=== PATIENT | male | born 1980 | race Caucasian/White ===

== ENCOUNTER → 2017-01-02 | Outpatient (CLI) | payer OTHER ==
[2017-01-02 15:18] LABS: BUN/CREATININE RATIO 15 (0-10)
== END ==
LOC: LAB 14:11
PROVIDERS: Nurse Practitioner Family
DX: M54.2 Cervicalgia (principal); M54.9 Dorsalgia, unspecified; R05 Cough; M25.572 Pain in left ankle and joints of left foot; M25.571 Pain in right ankle and joints of right foot; M25.561 Pain in right knee; M25.562 Pain in left knee; M47.816 Spondylosis without myelopathy or radiculopathy, lumbar region; R91.8 Other nonspecific abnormal finding of lung field; M47.814 Spondylosis without myelopathy or radiculopathy, thoracic region; M79.89 Other specified soft tissue disorders
CPT/HCPCS: 36415; 71020; 72040; 72072; 72100; 73564; 73610; 80053; 80061; 80074; 82150; 83690; 84443; 84550; 86039; 86431